=== PATIENT | male | born 1995 | race Caucasian/White ===

== ENCOUNTER 2021-11-15 10:59 | Emergency (ER) | payer MEDICAID, MEDICARE, OTHER ==
[2021-11-15] MEDS ORDERED: Acetaminophen 500 MG TAB ONE (11:24)
== END 2021-11-15 13:40 | disposition home or self-care (01) ==
LOC: ERS 10:59
DX: U07.1 COVID-19 (principal); J10.1 Influenza due to other identified influenza virus with other respiratory manifestations; J45.909 Unspecified asthma, uncomplicated; F84.0 Autistic disorder
CPT/HCPCS: 71045; 87804; U0003; U0005

== ENCOUNTER 2022-06-04 10:01 | Emergency (ER) | payer MEDICARE, OTHER ==
[2022-06-04] MEDS ORDERED: Ketorolac Tromethamine 30 MG/ML VIAL ONE (11:05)
== END 2022-06-04 11:34 | disposition home or self-care (01) ==
LOC: ERS 10:01
DX: M54.50 Low back pain, unspecified (principal); M25.561 Pain in right knee
CPT/HCPCS: 96372; J1885

== ENCOUNTER 2023-03-15 10:25 | Emergency (ER) | payer MEDICAID, MEDICARE, OTHER | END 2023-03-15 11:09 | disposition home or self-care (01) | LOC: ERS 10:25 | DX: H10.33 Unspecified acute conjunctivitis, bilateral (principal); J06.9 Acute upper respiratory infection, unspecified | CPT/HCPCS: 99283 ==

== ENCOUNTER 2023-03-18 09:02 | Emergency (ER) | payer OTHER ==
[2023-03-18] MEDS ORDERED: Erythromycin Base 0.5% Oint 1 GM TUBE ONE (11:16)
== END 2023-03-18 11:20 | disposition home or self-care (01) ==
LOC: ERS 09:02
DX: H10.9 Unspecified conjunctivitis (principal)
CPT/HCPCS: 99282

== ENCOUNTER 2023-05-03 11:26 | Emergency (ER) | payer OTHER, SELFPAY ==
[2023-05-03] MEDS ORDERED: Ibuprofen 200 MG TAB ONE (12:30)
[2023-05-03] MEDS ORDERED: Acetaminophen 500 MG TAB ONE (12:30)
== END 2023-05-03 13:39 | disposition home or self-care (01) ==
LOC: ERS 11:26
DX: K11.20 Sialoadenitis, unspecified (principal)
CPT/HCPCS: 99283

== ENCOUNTER 2023-10-03 06:29 | Emergency (ER) | payer SELFPAY | END 2023-10-03 07:26 | disposition home or self-care (01) | LOC: ERS 06:29 | DX: S43.422A Sprain of left rotator cuff capsule, initial encounter (principal); F84.0 Autistic disorder; X58.XXXA Exposure to other specified factors, initial encounter | CPT/HCPCS: 99283 ==

== ENCOUNTER 2023-10-29 20:15 | Emergency (ER) | payer SELFPAY ==
[2023-10-29] MEDS ORDERED: Ibuprofen 200 MG TAB ONE (21:57)
== END 2023-10-29 22:00 | disposition home or self-care (01) ==
LOC: ERS 20:15
DX: M25.561 Pain in right knee (principal)

== ENCOUNTER 2025-02-02 20:27 | Emergency (ER) | payer OTHER, SELFPAY | END 2025-02-02 21:13 | disposition home or self-care (01) | LOC: ERS 20:27 | DX: J01.10 Acute frontal sinusitis, unspecified (principal); B34.9 Viral infection, unspecified | CPT/HCPCS: 87081; 87426; 87430; 99283 ==

== ENCOUNTER 2025-02-16 08:42 | Emergency (ER) | payer SELFPAY | END 2025-02-16 10:30 | disposition home or self-care (01) | LOC: ERS 08:42 | DX: B34.9 Viral infection, unspecified (principal) | CPT/HCPCS: 71045; 87428 ==